=== PATIENT | male | born 1950 | race Caucasian/White ===

== ENCOUNTER 2016-10-31 13:04 | Emergency (ER) | payer OTHER ==
[~2016-10-31] VITALS: Ht 167.6 cm; Wt 88.0 kg
[~2016-10-31 13:04] MED LIST: ALBU17I INH; AMLO5 PO; ATOR40TA PO; DIVA500T8 PO; GABA300C3 PO; HYDR50CA PO; METO50TA PO; PRAZ5CAP16 PO; QUET50TA PO; REME45TA PO; ST JTAB PO; VITA100017 PO; VITA10002 PO; ZOLP10TA3 PO
[2016-10-31 13:06] VITALS: BP 195/96; PULSE 78; RESP 17; TEMP 98.1; O2SAT 95
[2016-10-31 13:30] VITALS: BP 131/91; PULSE 71; RESP 16; O2SAT 100
[2016-10-31 13:35] VITALS: BP 165/91
--- NOTE | 2016-10-31 13:38 | PD ---
HPI . Chest pain and shortness of breath Chief Complaint: Chest Pain Time Seen by Provider: 13:32 Travel History International Travel<30 days: No Contact w/Intl Traveler<30days: No Traveled to known affect area: No History of Present Illness HPI Patient presents with chest pain and shortness of breath which started at 0200. It is associated with left arm numbness. He is also complaining with swelling of his lower extremities. He has not taken anything for it prior to presentation. He states that it feels like pain associated with a previous SD. He reports no noted exacerbating or relieving factors. PFSH Past Medical History Arthritis: No Asthma: No Autoimmune Disease: No Anxiety: Yes Depression: Yes Heart Rhythm Problems: No Cancer: No Cardiovascular Problems: Yes (SD) High Cholesterol: Yes Chest Pain: No Congestive Heart Failure: No COPD: Yes Cerebrovascular Accident: No Diabetes: No Diminished Hearing: No Endocrine: No GERD: No Genitourinary: No Headaches: Yes Hiatal Hernia: No Hypertension: Yes Immune Disorder: No Implanted Vascular Access Dvce: Yes Kidney Stones: No Musculoskeletal: Yes Neurologic: Yes Psychiatric: Yes (PTSD) Reproductive: No Respiratory: Yes (COPD) Migraines: No Renal Failure: No Seizures: No Sickle Cell Disease: No Sleep Apnea: No Thyroid Disease: No Ulcer: No Past Surgical History Abdominal Surgery: No AICD: No Body Medical Devices: LEFT ANKLE WITH 6 SCREWS, LEFT TIBIA WITH BLANCHE FROM KNEE TO ANKLE Cardiac Surgery: Yes (CARDIAC STENT X 4) Ear Surgery: No Endocrine Surgery: No Eye Surgery: No Genitourinary Surgery: No Gynecologic Surgery: No Insulin Pump: No Joint Replacement: Yes Neurologic Surgery: Yes (KORY HOLES FOR SDH) Oral Surgery: No Pacemaker: No Thoracic Surgery: No Other Surgery: Yes (SUBDURAL HEMATOMA, TONSILLECTOMY,VASECTOMY) Social History Alcohol Use: Yes (OCCASIONAL) Tobacco Use: Yes (1/2 PPD) Substance Use: No Allergies-Medications (Allergen,Severity, Reaction): Coded Allergies: Methadone (Verified Allergy, Severe, Nausea/Vomiting, 12/07/13) Morphine (Verified Allergy, Severe, Nausea/Vomiting, 12/07/13) Oxycontin (Verified Allergy, Mild, Hives, 12/07/13) Reported Meds & Prescriptions Reported Meds & Active Scripts Active Reported Prazosin Hcl (Prazosin HCl) 5 Mg Cap 5 Mg PO HS Quetiapine Fumarate 50 Mg Tab 25 Mg PO HS Mirtazapine 45 Mg Tab 45 Mg PO HS Atorvastatin Calcium 40 Mg Tab 20 Mg PO HS Aspirin Ec (Aspirin) 81 Mg Tab 81 Mg PO DAILY Vitamin B12 (Cyanocobalamin) 1,000 Mcg Tab 1,000 Mcg PO DAILY Vitamin C (Ascorbic Acid) 1,000 Mg Tab 1,000 Mg PO DAILY Norvasc (Amlodipine Besylate) 5 Mg Tab 5 Mg PO DAILY Zolpidem Tartrate 10 Mg Tab 10 Mg PO HS Hydroxyzine Pamoate 50 Mg Cap 50 Mg PO HS Divalproex Sodium Er (Divalproex Sodium) 500 Mg Tab 1,000 Mg PO HS Proventil Mdi (Albuterol Sulfate) 17 Gm Aero 3 Puff INH TID Metoprolol Tartrate 50 Mg Tab 12.5 Mg PO BID Gabapentin 300 Mg Cap 300 Mg PO BID Review of Systems Except as stated in HPI: all other systems reviewed are Neg General / Constitutional: No: Fever, Chills Cardiovascular: Positive: Chest Pain or Discomfort Respiratory: Positive: Shortness of Breath Musculoskeletal: Positive: Myalgias, Edema Neurologic: Positive: Paresthesia Physical Exam Narrative GENERAL: Healthy-appearing man in no acute distress. SKIN: Warm and dry. HEAD: Atraumatic. Normocephalic. EYES: Pupils equal and round. ENT: No nasal bleeding or discharge. Mucous membranes pink and moist. NECK: Trachea midline. Neck is supple. CARDIOVASCULAR: Regular rate and rhythm. Heart sounds are normal. RESPIRATORY: No accessory muscle use. He has diffuse expiratory wheezing. GASTROINTESTINAL: Abdomen soft, non-tender, nondistended. MUSCULOSKELETAL: No obvious deformities. 2+ pretibial pitting edema. NEUROLOGICAL: Awake and alert. No obvious cranial nerve deficits. Motor grossly within normal limits. Normal speech. PSYCHIATRIC: Appropriate mood and affect; insight and judgment normal. Data Data Last Documented VS Vital Signs Date Time Temp Pulse Resp B/P Pulse Ox O2 Delivery O2 Flow Rate FiO2 10/31/16 13:35 100 Nasal Cannula 2 10/31/16 13:35 165/91 10/31/16 13:30 71 16 10/31/16 13:06 98.1 Orders Electrocardiogram (10/31/16 ) Basic Metabolic Panel (Bmp) (10/31/16 13:32) Ckmb (Isoenzyme) Profile (10/31/16 13:32) Complete Blood Count With Diff (3/9/17 13:32) Magnesium (Mg) (10/31/16 13:32) Prothrombin Time / Inr (Pt) (10/31/16 13:32) Act Partial Throm Time (Ptt) (10/31/16 13:32) Troponin I (10/31/16 13:32) Chest, Single Ap (10/31/16 13:32) Ecg Monitoring (10/31/16 13:32) Bilateral Bp Monitoring (10/31/16 13:32) Iv Access Insert/Monitor (10/31/16 13:32) Oximetry (10/31/16 13:32) Oxygen Administration (10/31/16 13:32) Aspirin Chew (Aspirin Chew) (10/31/16 13:45) Nitroglycerin 2% Oint (Nitroglycerin 2% (10/31/16 13:45) Sodium Chloride 0.9% Flush (Ns Flush) (10/31/16 13:45) CKMB (10/31/16 13:30) CKMB% (10/31/16 13:30) Labs Laboratory Tests Test 10/31/16 13:30 White Blood Count 8.4 TH/MM3 Red Blood Count 4.66 MIL/MM3 Hemoglobin 14.6 GM/DL Hematocrit 43.0 % Mean Corpuscular Volume 92.3 FL Mean Corpuscular Hemoglobin 31.4 PG Mean Corpuscular Hemoglobin 34.0 % Concent Red Cell Distribution Width 14.4 % Platelet Count 207 TH/MM3 Mean Platelet Volume 6.7 FL Neutrophils (%) (Auto) 50.2 % Lymphocytes (%) (Auto) 36.7 % Monocytes (%) (Auto) 10.4 % Eosinophils (%) (Auto) 1.8 % Basophils (%) (Auto) 0.9 % Neutrophils # (Auto) 4.2 TH/MM3 Lymphocytes # (Auto) 3.1 TH/MM3 Monocytes # (Auto) 0.9 TH/MM3 Eosinophils # (Auto) 0.2 TH/MM3 Basophils # (Auto) 0.1 TH/MM3 CBC Comment DIFF FINAL Differential Comment Prothrombin Time 11.1 SEC Prothromb Time International 1.0 RATIO Ratio Activated Partial 26.5 SEC Thromboplast Time Sodium Level 143 MEQ/L Potassium Level 5.0 MEQ/L Chloride Level 108 MEQ/L Carbon Dioxide Level 28.8 MEQ/L Anion Gap 6 MEQ/L Blood Urea Nitrogen 25 MG/DL Creatinine 1.17 MG/DL Estimat Glomerular Filtration 63 ML/MIN Rate Random Glucose 88 MG/DL Calcium Level 8.2 MG/DL Magnesium Level 1.8 MG/DL Total Creatine Kinase 161 U/L Creatine Kinase MB 2.3 NG/ML Troponin I LESS THAN 0.02 NG/ML MDM Medical Decision Making Medical Screen Exam Complete: Yes Emergency Medical Condition: Yes Medical Record Reviewed: Yes (medical history is significant for hypertension, hyperlipidemia, COPD, coronary artery disease status post previous SD Lasix.) Interpretation(s) EKG shows a normal sinus rhythm with no ST segment elevation or depression. Differential Diagnosis Differential diagnosis of chest pain includes but is not limited to musculoskeletal pain, pulmonary embolism, acute coronary syndrome, pneumonia, pleurisy Narrative Course Patient presents for the evaluation of chest pain. He reports ongoing symptoms for almost 12 hours. I have ordered aspirin and nitroglycerin along with a cardiac workup. CBC & BMP Diagram 10/31/16 13:30 Initial cardiac enzymes are negative. Last Impressions Chest X-Ray 10/31/16 1332 Signed Impressions: Service Date/Time: , October 31, 2016 13:35 - CONCLUSION: Minimal linear parenchymal density right lung base suggesting scarring or atelectasis. Otherwise no evidence of acute process. Benny Jefferson MD Chest x-ray was independently viewed by me. Admission to the chest pain center has been discussed with the patient. However , he declines. Chest pain was relieved by nitroglycerin paste. He states that he has nitroglycerin at home but has not used it. He has been instructed to return here for chest pain unrelieved by 3 sublingual not glycerin. Critical Care Narrative Aggregate critical care time was 30 minutes. Time to perform other separately billable procedures was not included in the critical care time. My time did not include minutes spent treating any other patients simultaneously or on activities that did not directly contribute to the patient's treatment. The services I provided to this patient were to treat and/or prevent clinically significant deterioration due to possible ACS/NSTEMI I provided critical care services requiring my management, as noted below: Chart data review, documentation time, medication orders and management, vital sign assessments/reviewing monitor data, ordering and reviewing lab tests, ordering and interpreting/reviewing x-rays and diagnostic studies, care of the patient and discussion of the patient with the admitting physicians Diagnosis Primary Impression: Angina pectoris Patient Instructions: Angina (DC), General Instructions Disposition: 01 DISCHARGE HOME Condition: Stable Tita Parker MD Oct 31, 2016 13:38
[2016-10-31] MEDS ORDERED: NITROGLYCERIN 2% OINT 1 GM PACKET TOP ONE (13:45)
[2016-10-31] MEDS ORDERED: ASPIRIN 81 MG CHEW TAB PO ONE (13:45)
[2016-10-31] MEDS ORDERED: SODIUM CHLORIDE 0.9% FLUSH 5 ML FLUSH IVF PRN (13:45)
[2016-10-31 13:52] LABS: AUTOMATED NEUTROPHIL # 4.2 TH/MM3 (1.8-7.7); BASOPHIL # 0.1 TH/MM3 (0-0.2); BASOPHIL % 0.9 % (0.0-2.0); EOSINOPHIL # 0.2 TH/MM3 (0-0.4); EOSINOPHIL % 1.8 % (0.0-4.0); HEMO FLAGS DIFF FINAL; LYMPH % 36.7 % (9.0-44.0); LYMPHOCYTE # 3.1 TH/MM3 (1.0-4.8); MEAN CELL VOLUME 92.3 FL (80.0-100.0); MEAN CORPUSCULAR HEMOGLOBIN 31.4 PG (27.0-34.0); MONO % 10.4 % (0.0-8.0); NEUT % 50.2 % (16.0-70.0); PLATELET COUNT 207 TH/MM3 (150-450); RED BLOOD COUNT 4.66 MIL/MM3 (4.50-5.90); RED CELL DISTRIBUTION WIDTH 14.4 % (11.6-17.2); WHITE BLOOD COUNT 8.4 TH/MM3 (4.0-11.0)
[2016-10-31 14:01] LABS: APTT (PATIENT) 26.5 SEC (24.3-30.1); PROTHROMBIN TIME - PATIENT 11.1 SEC (9.8-11.6)
[2016-10-31 14:16] LABS: ANION GAP 6 MEQ/L (5-15); BICARBONATE 28.8 MEQ/L (21.0-32.0); BLOOD UREA NITROGEN 25 MG/DL (7-18); CHLORIDE 108 MEQ/L (98-107); GLOMERULAR FILTRATION RATE 63 ML/MIN (>89); MAGNESIUM 1.8 MG/DL (1.5-2.5); SODIUM (NA) 143 MEQ/L (136-145)
[2016-10-31 14:20] LABS: CREATINE KINASE 161 U/L (39-308)
[2016-10-31 14:32] LABS: CKMB 2.3 NG/ML (0.5-3.6)
--- NOTE | 2016-10-31 15:20 | RADRPT ---
EXAM DATE/TIME: 10/31/2016 13:35 [facility] COMPARISON: No previous studies available for comparison. INDICATIONS : Patient has had chest pain since this morning. He also states he has numbness down both legs and swel ling in the right leg. He has been congested since yesterday. MEDICAL HISTORY : None. SURGICAL HISTORY : Carotid stent. ENCOUNTER: Initial ACUITY: 1 day PAIN SCORE: 7/10 LOCATION: chest Center. FINDINGS: Small linear densities identified in the right lung base. Lungs are otherwise clear. Heart and mediastinal structures are unremarkable. CONCLUSION: Minimal linear parenchymal density right lung base suggesting scarring or atelectasis. Otherwise no evidence of acute process. Benny Jefferson MD on October 31, 2016 at 15:17 Board Certified Radiologist. This report was verified electronically.
[2016-10-31 15:50] VITALS: BP 142/75
--- NOTE | 2016-11-01 20:07 | EKG ---
Date Performed: 10/31/2016 Time Performed: 13:11:08 PTAGE: 66 years EKG: Sinus rhythm LOW QRS VOLTAGE IN EXTREMITY LEADS BORDERLINE ECG Compared to the PREVIOUS TRACING from 12/08/13, no significant change DOCTOR: Dougie Cohen Interpretating Date/Time 11/01/2016 20:05:46
== END 2016-10-31 15:57 | disposition home or self-care (01) ==
LOC: NEPA 13:04
DX: I20.9 Angina pectoris, unspecified (principal); I10 Essential (primary) hypertension; R20.0 Anesthesia of skin; M79.89 Other specified soft tissue disorders; E78.00 Pure hypercholesterolemia, unspecified; J44.9 Chronic obstructive pulmonary disease, unspecified; F43.10 Post-traumatic stress disorder, unspecified; F17.210 Nicotine dependence, cigarettes, uncomplicated; I25.2 Old myocardial infarction
CPT/HCPCS: 71010; 80048; 82550; 82552; 83735; 84484; 85025; 85610; 85730; 93005